=== PATIENT | male | born 1965 | race African-American/Black ===

== ENCOUNTER 2016-06-23 09:35 | Observation (INO) ==
[2016-06-23] MEDS ORDERED: ENOXAPARIN 100 MG/ML SYRINGE SUBCUT STA (09:53)
[2016-06-23] MEDS ORDERED: ASPIRIN 325 MG TABLET PO STA (09:53)
--- NOTE | 2016-06-23 09:56 | EKG Report ---
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
[2016-06-23 10:00] LABS: Basophils % 0.4 % (0.0-0.8); Eosinophils % 0.6 % (0.00-10.9); Hematocrit 46.5 VOL% (42.0-52.0); Hemoglobin 14.9 GM/DL (14.0-18.0); Lymphocytes # 1.3 10*3/uL (1.4-4.0); Lymphocytes % 27.1 % (21.2-54.2); Mean Corpuscular Hemoglobin 28 PG (27-34); Mean Corpuscular Volume 86.6 FL (87-102); Mean Platelet Volume 10.3 FL (9.6-12.0); Monocytes # 0.6 10*3/uL (0.11-0.8); Neutrophils # 2.8 10*3/uL (1.4-7.4); Neutrophils % 59.9 % (38.7-73.9); Platelet Count 189 T/CUMM (130-400); Red Blood Count 5.37 MC/CUMM (3.8-5.5); Red Cell Distribution Width 15.5 % (9.3-17.3); White Blood Count 4.7 T/CUMM (4-12)
[2016-06-23] MEDS ORDERED: ASPIRIN 325 MG TABLET ONE (10:06)
[2016-06-23] MEDS ORDERED: ENOXAPARIN 120 MG/0.8 ML SYRINGE SUBCUT ONE (10:06)
--- NOTE | 2016-06-23 10:15 | XRay Report ---
XR chest 1V portable Indication: Chest pain Comparison: 01 April 2016 Findings: The heart and mediastinum are stable in size and configuration. The pulmonary vascularity is slightly increased with bilateral increased interstitial lung density. No other lung infiltrates, effusions, pneumothorax or other abnormality is demonstrated. Impression: Findings suggest mild cardiac decompensation. PROCEDURE INTERPRETED AT [facility] DEPARTMENT OF RADIOLOGY Final Report Signed by: Dr. Domingo Meyers
[2016-06-23 10:40] LABS: Alanine Aminotransferase 47 U/L (16-61); Albumin 3.9 G/DL (3.4-5.0); Alkaline Phosphatase 82 U/L (45-117); Aspartate Amino Transferase 27 U/L (0-37); Bilirubin,Total < 0.39 MG/DL (0.2-1.0); Blood Urea Nitrogen 11 MG/DL (7-18); Calcium 10.2 MG/DL (8.5-10.1); Glucose 93 MG/DL (74-106); Magnesium 2.1 MG/DL (1.8-2.4); Osmolality,Calculated 279.3 MOS/KG (273-304); Potassium 4.5 MMOL/L (3.5-5.1); Sodium 141 MMOL/L (136-145); Total Protein 7.9 G/DL (6.4-8.3)
--- NOTE | 2016-06-23 11:46 | Emergency Department Note ---
Delores Gomez Hilary, am scribing for, and in the presence of, Abel Gann MD 10:27. Sanjuanita Gomez Phillip K, MD, personally performed the services described in this documentation, ascribed by Nadira Estrella in my presence, and it is both accurate and complete [id number] . Arrival - Arrival Chief Complaint: Chest Pain ED Nursing Triage Note: Brought in by EMS c/o midsternal chest pain-onset this morning. +SOB and generalized weakness x's 1 month. 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 Pt confirms SOB and generalized weakness for 1 month, midsternal chest pain that radiates to the right arm, dizzy, cough, swollen legs but denies having this feeling before, nausea, fever. 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 Pt has a PMHx of CHF, HTN, and Dyslipidemia. No other complaints or problems stated in the ED. Onset (ago): hour(s) Allergies/Adverse Reactions: Allergies Allergy/AdvReac Type Severity Reaction Status Date / Time No Known Allergies Allergy Verified 04/01/16 15:57 Home Medications: Home Medications Medication Instructions Recorded Confirmed Type Amlodipine Besylate 10 mg PO DAILY 06/23/16 06/23/16 History Aspirin EC Tab 81 mg PO DAILY 06/23/16 06/23/16 History Duloxetine HCl [Duloxetine] 30 mg PO BEDTIME 06/23/16 06/23/16 History Furosemide [Furosemide] 20 mg PO DAILY PRN 06/23/16 06/23/16 History Lisinopril 10 mg PO DAILY 06/23/16 06/23/16 History Nitroglycerin Sl Tab [Nitrostat] 0.4 mg SL Q5M PRN 06/23/16 06/23/16 History Pantoprazole Tab [Protonix Tab] 40 mg PO DAILY 06/23/16 06/23/16 History Review of System - Review of System 12 point system: reviewed and no additional remarkable complaints except as stated - Review of System Constitutional: Present: weakness (generalized), other (Dizzy). Absent: fever Respiratory: Present: cough, respiratory distress (SOB) Cardiovascular: Present: chest pain Gastrointestinal: Absent: abdominal pain, nausea, vomiting Musculoskeletal: Present: arm pain (chest pain radiating to rt arm), leg pain ( leg swelling) Neurological: Present: weakness (generalized) Medical,Surgical,& Family Hx - Medical History Cardio: History of: CHF, Hypertension Endocrine: History of: Dyslipidemia - Social History Smoking Status: Never smoker Frequency of Alcohol Use: Rarely Type of Drug Use: None Exam Vital Signs: Vital Signs Temperature 97.1 F L 06/23/16 09:41 Pulse Rate 79 06/23/16 10:00 Respiratory Rate 17 06/23/16 10:00 Blood Pressure 133/91 06/23/16 10:00 O2 Sat by Pulse Oximetry 98 06/23/16 10:00 - General General appearance: alert, in no apparent distress - Head Head exam: Present: atraumatic, normocephalic - Eye Eye exam: Present: normal appearance, PERRL, EOMI - ENT ENT exam: Present: mucous membranes moist, TM's normal bilaterally. Absent: mucous membranes dry - Neck Neck exam: Present: full ROM, trachea midline. Absent: tenderness - Chest Chest inspection: Present: symmetric chest wall rise. Absent: tenderness - Respiratory Respiratory exam: Present: normal lung sounds bilaterally. Absent: respiratory distress - Cardiovascular Cardiovascular exam: Present: regular rate, normal rhythm, normal heart sounds. Absent: murmur, rubs, gallop - Abdominal Exam Abdominal exam: Present: soft. Absent: distention, tenderness - Extremities Exam Extremities exam: Present: full ROM, pedal edema (2+ pedal edema bilaterally with the right leg being larger than the other. Chronic venustasis on Lower extremities). Absent: tenderness - Back Exam Back exam: Present: full ROM. Absent: tenderness - Neurological Exam Neurological exam: Present: alert, oriented X3, CN II-XII intact. Absent: motor sensory deficit - Psychiatric Psychiatric exam: Present: normal affect, normal mood - Skin Skin exam: Present: warm, dry, intact, normal color. Absent: rash Results - Labs CBC & BMP: 06/23/16 09:49 06/23/16 09:49 Lab Results: I have reviewed the patients labs Labs: Laboratory Tests 06/23/16 09:49 WBC 4.7 RBC 5.37 Hgb 14.9 Hct 46.5 MCV 86.6 L Lymph # (Auto) 1.3 L Laboratory Tests 06/23/16 09:49 Sodium 141 Potassium 4.5 Chloride 103 Carbon Dioxide 30 Calcium 10.2 H Globulin 4.0 H Albumin/Globulin Ratio 0.9 L - Diagnostic Findings Procedure: Chest x-ray: report reviewed by me (Findings suggest mild cardiac decompensation) Disposition Clinical Impression: Chest pain, Morbid obesity, History of congestive heart failure Case discussed with: patient Disposition: Still a Patient Condition: Guarded Additional Instructions: Admit to the hospitalist for further workup.
--- NOTE | 2016-06-23 12:43 | Ultrasound Report ---
US venous doppler LE BI Indication: Shortness of breath. Leg edema. BILATERAL LOWER EXTREMITY VENOUS ULTRASOUND Comparison: None Findings: Graded grayscale compression, color Doppler and pulsed Doppler ultrasound evaluation of the venous structures performed. Normal compressibility, augmentation and color saturation is present within bilateral common femoral, superficial femoral, popliteal and proximal greater saphenous veins. Impression: No evidence of DVT either lower extremity. PROCEDURE INTERPRETED AT [facility] DEPARTMENT OF RADIOLOGY Final Report Signed by: Jacoby Rudd M.D.
--- NOTE | 2016-06-23 13:02 | Hospitalist History & Physical ---
Assessment and Plan (1) Chest pain Status: Acute Assessment and plan: Patient will be admitted to the telemetry unit for further monitoring. Serial troponins will be drawn. Serial EKGs will be performed as well. Nitro prn as needed order for chest pain. Supplemental O2 available for patient. Chest x- ray unremarkable and venous Doppler showed no signs of DVT. Will consult cardiology pending further troponin results. Continue to monitor. Current Visit: Yes (2) History of congestive heart failure Status: Acute Assessment and plan: BNP 3. CXR unremarkable. VS stable. Current Visit: Yes (3) Morbid obesity Status: Acute Assessment and plan: Consult health and human performance professor. Place pt. on health and human performance professor. Current Visit: Yes History of Present Illness Chief complaint: Chest pain History of present illness: Mr. Villatoro is a 50-year-old morbidly obese black male patient with a history of CHF, NATALIA, PVD, hepatomegaly, hypertension, and dyslipidemia that presents to the ED this a.m. with complaints of midsternal chest pain. Patient states that he took one nitroglycerin prior to coming to the ED. Patient states that he has experienced chest pain with generalized weakness and shortness of breath for about 1 month but that it has progressively worsened within the last week Patient states that the midsternal chest pain is dull and that he feels as if something is" draining within my chest". Patient denies ever having this feeling before or any history of PR. Patient also states that he experienced dizziness this morning and has a cough. Patient denied history of whether or not the cough is nonproductive. Patient denies fever, nausea, or night sweats. Patient is seen by Dr. Durand. There are no other complaints or problems outlined in the ER at this time. The patient will be admitted to the hospitalist service for further evaluation and treatment. Home Medications Medication Instructions Recorded Confirmed Type Amlodipine Besylate 10 mg PO QAM 06/23/16 06/23/16 History Aspirin EC Tab 81 mg PO QAM 06/23/16 06/23/16 History Duloxetine HCl [Duloxetine] 30 mg PO BEDTIME 06/23/16 06/23/16 History Furosemide [Furosemide] 20 mg PO DAILY PRN 06/23/16 06/23/16 History Lisinopril 10 mg PO QAM 06/23/16 06/23/16 History Nitroglycerin Sl Tab [Nitrostat] 0.4 mg SL Q5M PRN 06/23/16 06/23/16 History Pantoprazole Tab [Protonix Tab] 40 mg PO QAM 06/23/16 06/23/16 History Allergies Allergy/AdvReac Type Severity Reaction Status Date / Time No Known Allergies Allergy Verified 04/01/16 15:57 Medical,Surgical,& Family Hx - Medical History Cardio: History of: CHF, Hypertension, PVD Endocrine: History of: Dyslipidemia Respiratory: History of: Obstructive Sleep Apnea (uses cpap) Gastrointestinal: History of: Liver Problems (pt. states he was recently diagnosed with an enlarged liver) - Social History Smoking Status: Never smoker Frequency of Alcohol Use: Rarely Type of Drug Use: None Lives With:: Parent Functional capacity: independent ambulation - Constitutional Constitutional: Present: stops breathing during sleep. Absent: chills, fever(s) , night sweats - EENT Eyes: Absent: blurry vision, loss of vision Ears: Absent: decreased hearing, ear discharge - Cardiovascular Cardiovascular: Present: chest pain at rest, edema - Respiratory Respiratory: Present: cough, dyspnea on exertion - Gastrointestinal Gastrointestinal: Absent: abdominal pain, nausea, vomiting - Genitourinary Genitourinary: Absent: difficulty urinating, hematuria - Musculoskeletal Musculoskeletal: Absent: muscle cramps - Neurological Neurological: Present: dizziness. Absent: confusion Exam - Constitutional General appearance: no acute distress, morbidly obese - Head Head exam: Present: normal inspection, normocephalic - Eye Eye exam: Present: EOMI. Absent: periorbital swelling Pupils: Present: CHRISTINA. Absent: dilated - Respiratory Respiratory exam: Present: other (coarse). Absent: accessory muscle use - Cardiovascular Cardiovascular exam: Present: regular rate and rhythm - GI/Abdominal GI/Abdominal exam: Present: normal bowel sounds, soft. Absent: tenderness - Extremities Exam Extremities exam: Present: normal capillary refill, full ROM - Neurological Exam Neurological exam: Present: alert, oriented X3, normal gait - Psychiatric Psychiatric exam: Present: normal affect, normal mood - Skin Skin exam: Present: normal color, warm, dry Results - Labs CBC & BMP: 06/23/16 09:49 06/23/16 09:49 Lab Results: I have reviewed the past 24 hour labs
[2016-06-23] MEDS ORDERED: NITROGLYCERIN SL 0.4 MG TABLET SL PRN (13:38)
[2016-06-23] MEDS ORDERED: ONDANSETRON 4 MG/2 ML VIAL IV PRN (13:38)
[2016-06-23] MEDS ORDERED: FUROSEMIDE 20 MG TABLET PO PRN (13:38)
[2016-06-23] MEDS ORDERED: ACETAMINOPHEN 325 MG TABLET PO PRN (13:38)
[2016-06-23 15:48] LABS: Troponin I Only < 0.015 NG/ML (0.00-0.045)
--- NOTE | 2016-06-23 16:35 | EKG Report ---
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
[2016-06-23 21:37] LABS: Troponin I Only < 0.015 NG/ML (0.00-0.045)
[2016-06-24 06:09] LABS: Basophils % 0.3 % (0.0-0.8); Eosinophils # 0.1 10*3/uL (0.0-0.87); Eosinophils % 1.3 % (0.00-10.9); Hematocrit 41.2 VOL% (42.0-52.0); Hemoglobin 13.1 GM/DL (14.0-18.0); Lymphocytes # 1.2 10*3/uL (1.4-4.0); Lymphocytes % 31.5 % (21.2-54.2); Mean Corpuscular HGB Conc 31.8 GM/DL (32-36); Mean Corpuscular Hemoglobin 28 PG (27-34); Mean Corpuscular Volume 88.2 FL (87-102); Mean Platelet Volume 11.1 FL (9.6-12.0); Monocytes # 0.6 10*3/uL (0.11-0.8); Monocytes % 15.4 % (1.7-12.7); Neutrophils % 51.5 % (38.7-73.9); Platelet Count 181 T/CUMM (130-400); Red Blood Count 4.67 MC/CUMM (3.8-5.5); Red Cell Distribution Width 15.5 % (9.3-17.3); White Blood Count 3.9 T/CUMM (4-12)
[2016-06-24 06:57] LABS: Free T4 (Free Thyroxine) 0.98 NG/DL (0.76-1.46); Risk Ratio 5.09; Thyroid Stimulating Hormone 3.25 uIU/ml (0.358-3.74); VLDL CHOLESTEROL 28.6 MG/DL
--- NOTE | 2016-06-24 07:54 | EKG Report ---
Stationary ECG Study 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
[2016-06-24] MEDS ORDERED: ENOXAPARIN 40 MG/0.4 ML SYRINGE SUBCUT SCH (09:00)
[2016-06-24] MEDS ORDERED: LISINOPRIL 10 MG TABLET PO SCH (09:00)
--- NOTE | 2016-06-24 09:12 | Cardiology Consult Note ---
<Laura Juares - Last Filed: 06/24/16 08:36> Assessment and Plan - Time spent with patient Time spent with patient: Greater than 30 minutes (1) Chest pain Status: Acute Assessment and plan: See plan of care listed below. Current Visit: Yes (2) History of congestive heart failure Status: Chronic Assessment and plan: See plan of care listed below. Current Visit: Yes (3) Hypertension Status: Chronic Assessment and plan: See plan of care listed below. Current Visit: Yes (4) Dyslipidemia Status: Chronic Assessment and plan: See plan of care listed below. Current Visit: Yes (5) Chronic venous insufficiency Status: Chronic Assessment and plan: See plan of care listed below. Current Visit: Yes (6) Morbid obesity Status: Chronic Assessment and plan: See plan of care listed below. 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 Drake ([facility]) PCP: Dr. Durand in [facility] Mr. Villatoro is a 50 year old male without known history of coronary artery disease, not routinely followed by cardiology. Patient presented to the emergency room yesterday with complaints of chest pain. Patient has cardiac risk factors significant for morbid obesity, hypertension, dyslipidemia, family history of coronary artery disease (mother had myocardial infarction in her 50s and his sister had coronary stents placed around age 61) and sedentary lifestyle. Per his report he is a lifetime non-smoker. Patient reports a past medical history of congestive heart failure (managed per Dr. Durand and Lucy), obstructive sleep apnea and chronic venous insufficiency. Patient reports that he has never undergone heart catheterization. Approximately 3 years ago he had a normal cardiac stress test at [facility] in [facility]. I have requested these records. Patient presented to [facility] emergency department via EMS with complaints of moderate midsternal chest pain that began yesterday morning while at rest. Patient is a poor historian. However, he describes his pain as a chest tightness that radiates to his right arm. He rates his pain a 5 out of 10. Associated with weakness, shortness of breath and heart racing. He confirms generalized weakness and easy fatigability with exercise intolerance over the past month. However, patient is morbidly obese weighing 339 pounds. Yesterday , he reports that his chest tightness lasted approximately 2 hours. It was finally relieved after receiving nitroglycerin in the emergency department. He tells me that yesterday his chest discomfort was not worsened with exertion. He was unable to identify any specific alleviating or aggravating factors. However, after further discussing with the patient he does confirm that he has been experiencing mild chest tightness with walking over the past several months. He reports that it only lasts a short time and is relieved with rest. Yesterday, his chest pain lasted longer than usual. At that time, he felt that he would benefit from being evaluated further in the emergency department. Patient has been admitted under hospitalist's service and housed on the telemetry unit. Cardiology has been consulted to further evaluate patient's chest pain. Patient was seen and examined on the telemetry unit. He is currently resting in bed in no acute distress without complaints of chest pain, heaviness and tightness. Cardiac biomarkers have been negative this hospital admission. EKG is unremarkable. Echocardiogram has been ordered, results are pending. Chronic venous stasis changes noted to bilateral lower extremities with significant edema. Venous Dopplers of bilateral lower extremities negative for DVT. BNP of 3. He does not appear to be in acute congestive heart failure. His chest x-ray suggestive of vascular congestion without briana pulmonary edema. Will continue to monitor cardiac biomarkers and keep patient NPO. Assessment/plan: 1. CHEST PAIN - Cardiac biomarkers have been negative this hospital admission. EKG is unremarkable. Currently, without chest pain, heaviness and tightness. Patient reports a history of congestive heart failure. However, he has never undergone cardiac catheterization in order to definitively diagnose ischemic versus nonischemic cardiomyopathy. Patient's CHF is managed per Dr. Durand in [facility], I have requested records from her office to verify this diagnosis. I have also requested records from [facility] in [place] patient reports that he has had cardiac stress testing there in the past. Echocardiogram has been obtained in order to evaluate patient's cardiomyopathy, this will be reviewed. At this point, will continue to cycle cardiac biomarkers and keep patient n.p.o. Will further discuss with Dr. Drake regarding the need for cardiac catheterization versus noninvasive testing. 2. HISTORY OF CONGESTIVE HEART FAILURE -This appears to be clinically stable at present. BNP of 3. He does not appear to be in acute congestive heart failure. His chest x-ray suggestive of vascular congestion without briana pulmonary edema. Echocardiogram has been obtained, results pending. Continue current plan of care at this time. Will further adjust his medications as needed throughout his hospital stay. 3. DYSLIPIDEMIA -lipid panel has been reviewed. Low-dose statin has been added at this time. Will monitor patient's LFTs as patient reports a history of enlarged liver. 4. HYPERTENSION -I have increased his lisinopril to 20 mg daily as patient's blood pressure has been suboptimally controlled this admission. Will make further adjustments as needed throughout his hospital stay. 5. CHRONIC VENOUS INSUFFICIENCY - Chronic venous stasis changes noted to bilateral lower extremities with significant edema. Venous Dopplers of bilateral lower extremities negative for DVT. BNP of 3. 6. OBSTRUCTIVE SLEEP APNEA -encouraged patient to bring his CPAP machine from home. CPAP nightly. 7. MORBID OBESITY -dietitian has been consulted per hospital medicine. Counseled patient on the importance of weight loss. Further plan and addendum to follow per Dr. Drake. CC: Tin Velazquez MD - Home Medications and Allergies Home Medications: Home Medications Medication Instructions Recorded Confirmed Type Amlodipine Besylate 10 mg PO QAM 06/23/16 06/23/16 History Aspirin EC Tab 81 mg PO QAM 06/23/16 06/23/16 History Duloxetine HCl [Duloxetine] 30 mg PO BEDTIME 06/23/16 06/23/16 History Furosemide [Furosemide] 20 mg PO DAILY PRN 06/23/16 06/23/16 History Lisinopril 10 mg PO QAM 06/23/16 06/23/16 History Nitroglycerin Sl Tab [Nitrostat] 0.4 mg SL Q5M PRN 06/23/16 06/23/16 History Pantoprazole Tab [Protonix Tab] 40 mg PO QAM 06/23/16 06/23/16 History Allergies/Adverse Reactions: Allergies Allergy/AdvReac Type Severity Reaction Status Date / Time No Known Allergies Allergy Verified 04/01/16 15:57 - Constitutional Constitutional: Present: fatigue, weakness. Absent: excessive sweating, fever(s ), frequent falls, headache(s), night sweats - Cardiovascular Cardiovascular: Present: as per HPI, chest pain at rest, dyspnea, dyspnea on exertion, edema, radiating jaw, neck or arm pain, lightheadedness, palpitations. Absent: claudication, diaphoresis, orthopnea, PND - Respiratory Respiratory: Present: cough, dyspnea, dyspnea on exertion. Absent: hemoptysis, wheezing, pain on inspiration, change in phlegm color - Gastrointestinal Gastrointestinal: Present: heartburn. Absent: abdominal pain, change in bowel habits, coffee ground emesis, hematemesis, hematochezia, loose stools, melena, nausea, vomiting - Neurological Neurological: Present: abnormal speech, dizziness. Absent: abnormal gait, behavioral changes, confusion, frequent falls, headache(s), syncope - Hematologic/Lymphatic Hematologic/Lymphatic: Absent: easy bleeding, easy bruising, lymphadenopathy Medical,Surgical,& Family Hx - Medical History Cardio: History of: CHF, Hypertension, Cardiovascular Problems (Chronic venous insufficiency) HEENT: History of: Ear Problem (cataracts) Endocrine: History of: Dyslipidemia Respiratory: History of: Obstructive Sleep Apnea (uses cpap) Gastrointestinal: History of: Liver Problems (pt. states he was recently diagnosed with an enlarged liver) Musculoskeletal: History of: Musculoskeletal Problems (arthritis in knee) Other: History of: Miscellaneous Medical Problems (Morbidly obese) - Surgical History Cardiac Surgeries: Patient Denies: Cardiac Catheterization - Family History Family History: Reports;: Family Heart Disease - Social History Smoking Status: Never smoker Frequency of Alcohol Use: Rarely Type of Drug Use: None Physical Examination Vital Signs Temp Pulse Resp BP Pulse Ox 97.1 F L 91 H 22 172/86 100 06/23/16 09:41 06/23/16 09:41 06/23/16 09:41 06/23/16 09:41 06/23/16 09:41 General: Present: No Apparent Distress, Other (Morbidly obese) HEENT: Present: Normocephaly Neck: Present: No Bruit, No Lymphadenopathy, No Thyromegaly Cardiac: Present: Reg Rate and Rhythm, S1/S2, No Murmur Lungs: Present: Normal Exam, Clear Ascult./Percussion, Normal Breath Sounds, No Wheeze, Rales, Rhonchi Abdomen: Present: Soft, Active Bowel Sounds, Non-Tender Skin: Present: Other (Chronic stasis changes noted to bilateral lower extremities) Extremities: Present: No Clubbing, No Cyanosis, Normal Upper Extr. Pulses, Normal Lower Extr. Pulses, +3 Edema (Bilateral lower extremities) Result/EKG - Labs CBC & BMP: 06/24/16 04:21 06/23/16 09:49 Lab Results: I have reviewed the past 24 hour labs Labs: Laboratory Results - last 24 hr 06/23/16 06/23/16 06/23/16 13:34 14:36 14:36 WBC RBC Hgb Hct MCV MCH MCHC RDW Plt Count MPV Neut % (Auto) Lymph % (Auto) [place] % (Auto) Eos % (Auto) Baso % (Auto) Neut # (Auto) Lymph # (Auto) [place] # (Auto) Eos # (Auto) Baso # (Auto) Immature Gran % Nucleated RBC % Immature Gran # Nucleated RBCs # INR 1.0 PT Patient/Control Mix 11.0 Hemoglobin A1c Total Creatine Kinase 42 CK-MB (CK-2) < 1.0 Troponin I < 0.015 < 0.015 Triglycerides Cholesterol LDL Cholesterol VLDL Cholesterol HDL Cholesterol Heart Disease Risk Ratio Free T4 TSH 3rd Generation 06/23/16 06/23/16 06/24/16 15:59 21:01 04:21 WBC 3.9 L RBC 4.67 Hgb 13.1 L Hct 41.2 L MCV 88.2 MCH 28 MCHC 31.8 L RDW 15.5 Plt Count 181 MPV 11.1 Neut % (Auto) 51.5 Lymph % (Auto) 31.5 [place] % (Auto) 15.4 H Eos % (Auto) 1.3 Baso % (Auto) 0.3 Neut # (Auto) 2.0 Lymph # (Auto) 1.2 L [place] # (Auto) 0.6 Eos # (Auto) 0.1 Baso # (Auto) 0.0 Immature Gran % 0.0 Nucleated RBC % 0.0 Immature Gran # 0.00 Nucleated RBCs # 0.00 INR PT Patient/Control Mix Hemoglobin A1c Total Creatine Kinase 39 CK-MB (CK-2) < 1.0 Troponin I < 0.015 < 0.015 Triglycerides Cholesterol LDL Cholesterol VLDL Cholesterol HDL Cholesterol Heart Disease Risk Ratio Free T4 TSH 3rd Generation 06/24/16 06/24/16 04:21 04:21 WBC RBC Hgb Hct MCV MCH MCHC RDW Plt Count MPV Neut % (Auto) Lymph % (Auto) [place] % (Auto) Eos % (Auto) Baso % (Auto) Neut # (Auto) Lymph # (Auto) [place] # (Auto) Eos # (Auto) Baso # (Auto) Immature Gran % Nucleated RBC % Immature Gran # Nucleated RBCs # INR PT Patient/Control Mix Hemoglobin A1c 5.9 Total Creatine Kinase CK-MB (CK-2) Troponin I Triglycerides 143 Cholesterol 219 H LDL Cholesterol 148.0 VLDL Cholesterol 28.6 HDL Cholesterol 43 Heart Disease Risk Ratio 5.09 Free T4 0.98 TSH 3rd Generation 3.250 <Jacoby Drake - Last Filed: 06/24/16 11:49> History of Present Illness - Consult Narrative History of present illness: Patient personally interviewed and examined and chart reviewed. Discussed case with Laura Juares NP. I agree with the assessment and evaluation and plan. In summation in addition Mr. Villatoro is a 50 year old male is actually fairly poor historian. He has had chronic recurrent episodes of chest pain by his history. For the past year he's had this persistent wax waning and sometimes can clinically resolving chest pain. He presented to the emergency room with chest pain that lasted for entire day without any real shortness of breath nausea or diaphoresis. Evaluation here with troponin nondetectable 4, BNP of 3. His ECG with normal sinus rhythm and within normal limits. Having chest pain lasting for entire day if this was ischemic on his suspect at least some detectable troponin or changes ECG none of which she has. He is very tenderness chest wall and reproduces of his pain with palpation. He is morbidly obese and has sleep apnea. I think his weight though is low enough that we can do a cardiac perfusion study and I would recommend this over catheterization in this patient. I discussed this with him and he is agreeable. His biggest concern at this time in our discussion was getting something to eat. If his car perfusion study is normal as is his echocardiogram we will discharge the patient later today possibly. CC: Tin Velazquez MD Physical Examination Vital Signs Temp Pulse Resp BP Pulse Ox 97.1 F L 91 H 22 172/86 100 06/23/16 09:41 06/23/16 09:41 06/23/16 09:41 06/23/16 09:41 06/23/16 09:41 General: Present: Other Result/EKG - Labs CBC & BMP: 06/24/16 04:21 06/23/16 09:49 Labs: Laboratory Results - last 24 hr 06/23/16 06/23/16 06/23/16 13:34 14:36 14:36 WBC RBC Hgb Hct MCV MCH MCHC RDW Plt Count MPV Neut % (Auto) Lymph % (Auto) [place] % (Auto) Eos % (Auto) Baso % (Auto) Neut # (Auto) Lymph # (Auto) [place] # (Auto) Eos # (Auto) Baso # (Auto) Immature Gran % Nucleated RBC % Immature Gran # Nucleated RBCs # INR 1.0 PT Patient/Control Mix 11.0 Hemoglobin A1c Total Creatine Kinase 42 CK-MB (CK-2) < 1.0 Troponin I < 0.015 < 0.015 Triglycerides Cholesterol LDL Cholesterol VLDL Cholesterol HDL Cholesterol Heart Disease Risk Ratio Free T4 TSH 3rd Generation 06/23/16 06/23/16 06/24/16 15:59 21:01 04:21 WBC 3.9 L RBC 4.67 Hgb 13.1 L Hct 41.2 L MCV 88.2 MCH 28 MCHC 31.8 L RDW 15.5 Plt Count 181 MPV 11.1 Neut % (Auto) 51.5 Lymph % (Auto) 31.5 [place] % (Auto) 15.4 H Eos % (Auto) 1.3 Baso % (Auto) 0.3 Neut # (Auto) 2.0 Lymph # (Auto) 1.2 L [place] # (Auto) 0.6 Eos # (Auto) 0.1 Baso # (Auto) 0.0 Immature Gran % 0.0 Nucleated RBC % 0.0 Immature Gran # 0.00 Nucleated RBCs # 0.00 INR PT Patient/Control Mix Hemoglobin A1c Total Creatine Kinase 39 CK-MB (CK-2) < 1.0 Troponin I < 0.015 < 0.015 Triglycerides Cholesterol LDL Cholesterol VLDL Cholesterol HDL Cholesterol Heart Disease Risk Ratio Free T4 TSH 3rd Generation 06/24/16 06/24/16 06/24/16 04:21 04:21 10:03 WBC RBC Hgb Hct MCV MCH MCHC RDW Plt Count MPV Neut % (Auto) Lymph % (Auto) [place] % (Auto) Eos % (Auto) Baso % (Auto) Neut # (Auto) Lymph # (Auto) [place] # (Auto) Eos # (Auto) Baso # (Auto) Immature Gran % Nucleated RBC % Immature Gran # Nucleated RBCs # INR PT Patient/Control Mix Hemoglobin A1c 5.9 Total Creatine Kinase 42 CK-MB (CK-2) < 1.0 Troponin I < 0.015 Triglycerides 143 Cholesterol 219 H LDL Cholesterol 148.0 VLDL Cholesterol 28.6 HDL Cholesterol 43 Heart Disease Risk Ratio 5.09 Free T4 0.98 TSH 3rd Generation 3.250
[2016-06-24 10:48] LABS: Troponin I Only < 0.015 NG/ML (0.00-0.045)
[2016-06-24] MEDS ORDERED: REGADENOSON 0.4 MG/5 ML SYRINGE IV ONE (15:23)
[2016-06-24 16:35] LABS: Troponin I Only < 0.015 NG/ML (0.00-0.045)
--- NOTE | 2016-06-24 16:42 | Hospitalist Progress Note ---
Assessment and Plan - Time spent with patient Time spent with patient: Less than 30 minutes (1) Chest pain Status: Acute Assessment and plan: Follow-up nuclear stress test. Current Visit: Yes (2) Morbid obesity Status: Chronic Current Visit: Yes Qualifiers: Obesity type: due to excess calories Qualified Code(s): E66.01 - Morbid ( severe) obesity due to excess calories (3) Hypertension Status: Chronic Current Visit: Yes Qualifiers: Hypertension type: essential hypertension Qualified Code(s): I10 - Essential (primary) hypertension (4) Dyslipidemia Status: Chronic Current Visit: Yes (5) Chronic venous insufficiency Status: Chronic Current Visit: Yes (6) Obstructive sleep apnea Status: Acute Current Visit: Yes Hospitalist: Subjective Interval history: 50-year-old male admitted with chest pain. Cardiology consult noted. Nuclear stress test pending. Exam - Constitutional Vitals: Period Temp Pulse Resp BP Sys/Vickers Pulse Ox Last 24 Hr 96.4 F-97.8 F 70-82 12-22 146-177/81-97 97-100 Exam: Constitutional System: No distress. No tremulousness. Head: Normocephalic, atraumatic. Ears, Nose and Throat System: No pain or tenderness. No epistaxis or discharge Eyes System: Pupils equal, round, and reactive. Extraocular muscles intact. Neck: Supple, without adenopathy, No jugular venous distention. Respiratory System: Chest clear to auscultation. Cardiovascular System: Heart with regular rate and rhythm. No murmur. GI System: Abdomen soft, nontender. Normo active bowel sounds present. Musculoskeletal System: limbs with no pedal edema. Full distal pulses. Chronic lower extremity stasis changes. Neurological System: No discernable sensory deficit. No aphasia Psychiatric System: Conversation is rational Results - Labs CBC & BMP: 06/24/16 04:21 06/23/16 09:49 Lab Results: I have reviewed the past 24 hour labs
[2016-06-24] MEDS: LISINOPRIL 20 MG TABLET PO SCH (17:02)
[2016-06-24] MEDS: ASPIRIN EC 81 MG TABLET PO SCH (17:03)
[2016-06-24] MEDS: PANTOPRAZOLE 40 MG TABLET PO SCH (17:03)
[2016-06-24] MEDS: amLODIPine 10 MG TABLET PO SCH (17:03)
--- NOTE | 2016-06-24 18:15 | ECHO Report ---
Tommy Villatoro Exam Date: 06/24/2016 14:05 Referring Physician: Technologist: Jennifer Piña RDCS Age: 50 Ht (in): 61 Wt (lb): 339 Gender: M Exam Location: [facility] Echo Indications: Chest pain, unspecified, Essential (primary) hypertension, Weakness, Chronic fatigue, unspecified, Morbid (severe) obesity due to excess calories, NATALIA, Dyslipidemia, Peripheral vascular disease, unspecified BP: 160 / 81 HR: 80 Rhythm: Sinus Technical Quality: Fair IMPRESSIONS Left ventricle is normal size and normal systolic function without segmental mellitus. Ejection fraction 55%. 2. Other cardiac chambers are normal size and function. 3. The valvular structures are all grossly normal anatomically and functionally. 4. This is an unremarkable echocardiogram. MEASUREMENTS (Male / Female) Normal Values 2D ECHO LV Diastolic Diameter PLAX 5.8 cm 4.2 - 5.9 / 3.9 - 5.3 cm LV Systolic Diameter PLAX 3.1 cm LV Fractional Shortening PLAX 47.5 % IVS Diastolic Thickness 0.9 cm 0.6 - 1.0 / 0.6 - 0.9 cm LVPW Diastolic Thickness 0.9 cm 0.6 - 1.0 / 0.6 - 0.9 cm RV Internal Dim ED PLAX 2.8 cm Aortic Root Diameter 3.3 cm LA Systolic Diameter LX 4.1 cm 3.0 - 4.0 / 2.7 - 3.8 cm FINDINGS Left Ventricle Normal left ventricular cavity size. Normal left ventricular wall thickness. Left ventricular ejection fraction is estimated at 55 %. Right Ventricle The right ventricle is normal in size and function. Right Atrium The right atrium is normal in size. Left Atrium The left atrium is normal in size. Mitral Valve Morphologically normal mitral valve without significant stenosis or prolapse. There is no mitral regurgitation. Aortic Valve Morphologically normal aortic valve without significant sclerosis or stenosis. There is no aortic regurgitation. Tricuspid Valve Morphologically normal tricuspid valve without significant stenosis or regurgitation. Pulmonary artery systolic pressure is normal. Pulmonic Valve Morphologically normal pulmonic valve without significant stenosis. There is no pulmonic regurgitation. Pericardium Normal pericardium without effusion. Aorta Normal ascending aorta dimension. Jacoby Drake MD (Electronically Signed) Final Date: 24 Jun 2016 18:14
[2016-06-24] MEDS ORDERED: ROSUVASTATIN 10 MG TABLET PO SCH (21:00)
--- NOTE | 2016-06-24 22:41 | Nuclear Medicine Report ---
MYOCARDIAL PERFUSION SCAN DATE: 06/24/2016 BRIEF CLINICAL SUMMARY: The patient is a 50-year-old uncertain history of present illness. The patient was injected with 10 mCi of Sestamibi and was later sent for resting images to be obtain ed. The patient was then placed on a Lexiscan protocol due to gait instability. He had no ST montalvo es, dysrhythmia, or abnormality during the study. After Lexiscan, he was given 30 mCi of Sestamibi and was later sent for stress images to be obtained. The 3-D orthogonal reconstruction view shows a small fixed apical defect of moderate severity in the horizontal and vertical axis. Perfusion of the anterior lateral dimas appeared to be normal. Perf usion of the inferior wall is probably normal with some moderate amount of extracardiac radiotracer uptake adjacent and contiguous with the inferior wall in the rest and stress images in the short and vertical axis. The gated stress images shows normal LV systolic function with the ejection fraction estimated to be 60%. Wall motion is normal by regional wall motion analysis with mildly elevated end-diastolic volume. The raw data in cine mode shows no patient motion of the study with moderate subdiaphragmatic artifa ct from extracardiac uptake of radiotracer. IMPRESSION: 1. SCINTIGRAPHICALLY NORMAL MYOCARDIAL PERFUSION WITH THE EXCEPTION OF A MODEST FIXED APICAL DEFECT OF MODERATE SEVERITY MORE LIKELY RELATED TO GI ARTIFACT THAN TO SCARRING. 2. NORMAL LV SYSTOLIC FUNCTION WITH EJECTION FRACTION ESTIMATED TO BE 60% 3. NORMAL WALL MOTION BY REGIONAL WALL MOTION ANALYSIS WITH MILDLY ELEVATED END-DIASTOLIC VOLUME. DISPOSITION: This study is a low-risk study with normal LV function and no ischemia. As noted abov e the apical defect is more likely related to GI artifact, but some degree of scarring here cannot b e ruled out. Clinical correlation is suggested. Procedure performed and interpreted at [facility] Department of Radiology.
[2016-06-25 05:03] LABS: Basophils % 0.5 % (0.0-0.8); Hematocrit 41.4 VOL% (42.0-52.0); Immature Granulocytes % 0.2 %; Immature Granulocytes Absolute 0.01 #; Lymphocytes # 1.2 10*3/uL (1.4-4.0); Lymphocytes % 29.4 % (21.2-54.2); Mean Corpuscular HGB Conc 31.4 GM/DL (32-36); Mean Corpuscular Hemoglobin 28 PG (27-34); Mean Corpuscular Volume 87.9 FL (87-102); Mean Platelet Volume 10.8 FL (9.6-12.0); Monocytes # 0.7 10*3/uL (0.11-0.8); Neutrophils # 2.2 10*3/uL (1.4-7.4); Neutrophils % 51.9 % (38.7-73.9); Platelet Count 177 T/CUMM (130-400); Red Blood Count 4.71 MC/CUMM (3.8-5.5); Red Cell Distribution Width 15.3 % (9.3-17.3); White Blood Count 4.2 T/CUMM (4-12)
[2016-06-25 05:32] LABS: Eosinophils 2 % (0-10); Lymphocytes 27 % (20-55); Metamyelocytes 1 %; Segmented Neutrophils 54 % (50-85); Total Cells Counted 100
[2016-06-25 05:33] LABS: Hypochromasia 1+; Microcytosis Slight; Stomatocytes Slight
[2016-06-25 05:34] LABS: Platelet Estimate Adequate
[2016-06-25 05:46] LABS: Alanine Aminotransferase 42 U/L (16-61); Albumin 3.6 G/DL (3.4-5.0); Alkaline Phosphatase 73 U/L (45-117); Aspartate Amino Transferase 21 U/L (0-37); Bilirubin,Direct < 0.10 MG/DL (0.0-0.20); Bilirubin,Indirect 0.5 MG/DL (0.0-1.0); Blood Urea Nitrogen 11 MG/DL (7-18); Calcium 9.6 MG/DL (8.5-10.1); Glucose 98 MG/DL (74-106); Magnesium 2.3 MG/DL (1.8-2.4); Osmolality,Calculated 277.4 MOS/KG (273-304); Potassium 4.4 MMOL/L (3.5-5.1); Sodium 140 MMOL/L (136-145); Total Protein 7.1 G/DL (6.4-8.3)
--- NOTE | 2016-06-25 08:38 | Cardiology Progress Note ---
Assessment and Plan (1) Chest pain Status: Chronic Assessment and plan: This is somewhat chronic and noncardiac. No further cardiac evaluation needed this time. Current Visit: Yes (2) Morbid obesity Status: Chronic Assessment and plan: This certainly contributes to his multiple medical issues in leads to lose weight. Current Visit: Yes Qualifiers: Obesity type: due to excess calories Qualified Code(s): E66.01 - Morbid ( severe) obesity due to excess calories (3) Hypertension Status: Chronic Assessment and plan: This is fairly stable and be followed by his primary care physician. Current Visit: Yes Qualifiers: Hypertension type: essential hypertension Qualified Code(s): I10 - Essential (primary) hypertension (4) Dyslipidemia Status: Chronic Assessment and plan: He is now on Crestor and I would continue this and levels to be followed by his PCP. Current Visit: Yes (5) Obstructive sleep apnea Status: Acute Assessment and plan: He needs to continue treatment follow-up for this. Weight loss would probably benefit this tremendously. Current Visit: Yes (6) Edema Status: Chronic Assessment and plan: Much of this is lower extremity edema probably from some venous stasis disease. Much of this is probably associated with his morbid obesity and venous stasis. He is not very mobile so his feet are dependent almost all the time except for when he is in bed. Weight loss would be of great benefit. This to can be followed by his PCP. Current Visit: Yes Cardiology - PN: Subj Interval history: Patient doing well today. His chest pain is much improved. He is having no shortness of breath. His telemetry has been unremarkable. His cardiac perfusion study was normal without evidence of inducible ischemia. His echocardiogram was normal and normal ejection fraction without any structural or functional abnormalities noted. His ECGs have been normal. His troponin has been nondetectable. His lipids are certainly elevated and he should continue on his Crestor. This can be followed up by his primary care physician. Based on all the evaluation findings and clinical findings this patient's chest pain does not appear to be cardiac in nature. I do not think any further cardiac evaluation is indicated at this time. My standpoint he can be discharged. We will sign off at this time. Please let us know if we can be of any further service. Exam (Progress Note) - Constitutional Vitals: Period Temp Pulse Resp BP Sys/Vickers Pulse Ox Last 24 Hr 96.4 F-98.1 F 68-90 12-22 135-177/70-110 93-100 Exam: General appearance: Morbidly obese, no acute distress HEENT exam: normal inspection, atraumatic Neck exam: No carotid bruit. Trachea is in midline Respiratory/lungs exam: clear to auscultation bilaterally good air movement. Cardiovascular exam: regular rate and rhythm, no murmur or gallop or rub. No precordial lift. Chest wall exam: nontender GI/Abdominal exam: Morbidly obese, soft, nontender. Extremeties/musculoskeletal: Edema Neurological exam: alert, oriented X3, no focal deficits Psychiatric exam: normal affect, normal mood. Cognitive function is grossly normal. Skin exam: normal color, warm Result/EKG - Labs CBC & BMP: 06/25/16 04:12 06/25/16 04:12 Lab Results: I have reviewed the past 24 hour labs Labs: Laboratory Results - last 24 hr 06/24/16 06/24/16 06/25/16 10:03 15:34 04:12 WBC 4.2 RBC 4.71 Hgb 13.0 L Hct 41.4 L MCV 87.9 MCH 28 MCHC 31.4 L RDW 15.3 Plt Count 177 MPV 10.8 Neut % (Auto) 51.9 Lymph % (Auto) 29.4 [place] % (Auto) 17.0 H Eos % (Auto) 1.0 Baso % (Auto) 0.5 Neut # (Auto) 2.2 Lymph # (Auto) 1.2 L [place] # (Auto) 0.7 Eos # (Auto) 0.0 Baso # (Auto) 0.0 Total Counted 100 Immature Gran % 0.2 Nucleated RBC % 0.0 Immature Gran # 0.01 Segmented Neutrophils 54 Lymphocytes 27 Monocytes 14 Eosinophils 2 Basophils 2.0 H Metamyelocytes 1 Nucleated RBCs # 0.00 Platelet Estimate Adequate Hypochromasia 1+ Microcytosis Slight Stomatocytes Slight Morphology Comment Sodium Potassium Chloride Carbon Dioxide Anion Gap BUN Creatinine GFR Calculation BUN/Creatinine Ratio Glucose Calculated Osmolality Calcium Magnesium Total Bilirubin Direct Bilirubin Indirect Bilirubin AST ALT Alkaline Phosphatase Total Creatine Kinase 42 49 CK-MB (CK-2) < 1.0 < 1.0 Troponin I < 0.015 < 0.015 Total Protein Albumin 06/25/16 04:12 WBC RBC Hgb Hct MCV MCH MCHC RDW Plt Count MPV Neut % (Auto) Lymph % (Auto) [place] % (Auto) Eos % (Auto) Baso % (Auto) Neut # (Auto) Lymph # (Auto) [place] # (Auto) Eos # (Auto) Baso # (Auto) Total Counted Immature Gran % Nucleated RBC % Immature Gran # Segmented Neutrophils Lymphocytes Monocytes Eosinophils Basophils Metamyelocytes Nucleated RBCs # Platelet Estimate Hypochromasia Microcytosis Stomatocytes Morphology Comment Sodium 140 Potassium 4.4 Chloride 103 Carbon Dioxide 31 Anion Gap 10.4 BUN 11 Creatinine 0.80 GFR Calculation 164 BUN/Creatinine Ratio 13.00 Glucose 98 Calculated Osmolality 277.4 Calcium 9.6 Magnesium 2.3 Total Bilirubin 0.60 Direct Bilirubin < 0.10 Indirect Bilirubin 0.5 AST 21 ALT 42 Alkaline Phosphatase 73 Total Creatine Kinase CK-MB (CK-2) Troponin I Total Protein 7.1 Albumin 3.6 - Impressions Impressions: Telemetry with normal sinus rhythm.
[2016-06-25] MEDS: PANTOPRAZOLE 40 MG TABLET PO SCH (09:54)
[2016-06-25] MEDS: ASPIRIN EC 81 MG TABLET PO SCH (09:54)
[2016-06-25] MEDS: LISINOPRIL 20 MG TABLET PO SCH (09:55)
[2016-06-25] MEDS: amLODIPine 10 MG TABLET PO SCH (09:55)
--- NOTE | 2016-06-25 09:59 | Discharge Summary ---
Hospital Course - Hospital Course Hospital Course: Mr. Lowe is a 50-year-old obese -[place]wegian male with history of congestive heart failure, obstructive sleep apnea, peripheral vascular disease, hepatomegaly, hypertension, dyslipidemia presenting to the ED on 06/23/2016 with complaints of substernal chest pain and generalized weakness with shortness of breath that has progressively worsened over the last week. Patient's EKGs were okay and serial troponins were negative. Patient had a negative stress test per Dr. Drake from cardiology. Patient was started on some Crestor for his dyslipidemia and his levels will need to be followed by his primary care physician. Diabetes educators were consulted and weight loss was recommended for this patient. Patient also has dependent edema to bilateral lower extremities due to venous insufficiency. He does complain of bilateral leg pain. Will not write narcotics for this because that is not the treatment for venous insufficiency. He will need to follow-up with primary care physician and be fitted for compression stockings which should help with his venous return and pain. Patient is doing well. He has had no complaints of chest pain or shortness of breath, and is tolerating a diet. He will be discharged home with a 4 to six-week follow-up with Dr. Drake and a 2 week follow-up with his primary care physician nurse darnell das Lucy. Care was coordinated with Roxana Medina, CROP DUSTER ACNP, Dr. Santos, patient, and nursing staff. Care coordination, chart review, and discharge paperwork took approximately 34 minutes. - Time spent with patient Time with patient DS: Greater than 30 minutes Diagnosis - Discharge Diagnosis (1) Chest pain Status: Chronic (2) Morbid obesity Status: Chronic (3) History of congestive heart failure Status: Chronic (4) Hypertension Status: Chronic (5) Dyslipidemia Status: Chronic (6) Chronic venous insufficiency Status: Chronic (7) Obstructive sleep apnea Status: Acute Discharge Plan - Discharge Data Disposition: Disch To Home/Self Care Condition at Discharge: Stable Discharge Diet: diabetic diet Activity: resume usual activities as tolerated, no prolonged standing Hygiene: may shower Driving: no restrictions Contact your physician if you experience:: fever over 101, Redness or swelling, Shortness of breath, pain uncontrolled by pain medications - Discharge Medications New Rosuvastatin [Crestor] 10 mg PO BEDTIME #60 tablet Continue Nitroglycerin Sl Tab [Nitrostat] 0.4 mg SL Q5M PRN PRN Reason: Chest Pain Lisinopril 10 mg PO QAM Furosemide 20 mg PO DAILY PRN PRN Reason: Edema Duloxetine HCl [Duloxetine] 30 mg PO BEDTIME Amlodipine Besylate 10 mg PO QAM Aspirin EC Tab 81 mg PO QAM Pantoprazole Tab [Protonix Tab] 40 mg PO QAM - Follow Up or Referral Follow Up: Jacoby Drake MD [Physician] - 1 Month JUAN Durand [Other] - 1 Week (Follow-up for compression stockings for venous insufficiency) - Forms/Instructions Exam - Constitutional Vitals: Period Temp Pulse Resp BP Sys/Vickers Pulse Ox Last 24 Hr 96.4 F-98.1 F 68-90 12-22 135-177/70-110 93-100 Exam: 50-year-old -[place]wegian male, no acute distress, alert and oriented Chest clear CV regular rate and rhythm Abdomen obese, nontender Extremities with chronic edema Discharge Results Procedures and tests throughout hospitalization: Pending Orders 06/26/16 04:00 BMP w/ Mg [Basic Metabolic Panel w/Mg] IN AM CBC [Comp Blood Count Auto Diff] IN AM 06/27/16 04:00 BMP w/ Mg [Basic Metabolic Panel w/Mg] IN AM CBC [Comp Blood Count Auto Diff] IN AM 06/28/16 04:00 BMP w/ Mg [Basic Metabolic Panel w/Mg] IN AM CBC [Comp Blood Count Auto Diff] IN AM Labs on day of discharge: Labs from last 24 hours 06/25/16 06/25/16 06/24/16 04:12 04:12 15:34 WBC 4.2 RBC 4.71 Hgb 13.0 L Hct 41.4 L MCV 87.9 MCH 28 MCHC 31.4 L RDW 15.3 Plt Count 177 MPV 10.8 Neut % (Auto) 51.9 Lymph % (Auto) 29.4 [place] % (Auto) 17.0 H Eos % (Auto) 1.0 Baso % (Auto) 0.5 Neut # (Auto) 2.2 Lymph # (Auto) 1.2 L [place] # (Auto) 0.7 Eos # (Auto) 0.0 Baso # (Auto) 0.0 Total Counted 100 Immature Gran % 0.2 Nucleated RBC % 0.0 Immature Gran # 0.01 Segmented Neutrophils 54 Lymphocytes 27 Monocytes 14 Eosinophils 2 Basophils 2.0 H Metamyelocytes 1 Nucleated RBCs # 0.00 Platelet Estimate Adequate Hypochromasia 1+ Microcytosis Slight Stomatocytes Slight Morphology Comment Sodium 140 Potassium 4.4 Chloride 103 Carbon Dioxide 31 Anion Gap 10.4 BUN 11 Creatinine 0.80 GFR Calculation 164 BUN/Creatinine Ratio 13.00 Glucose 98 Calculated Osmolality 277.4 Calcium 9.6 Magnesium 2.3 Total Bilirubin 0.60 Direct Bilirubin < 0.10 Indirect Bilirubin 0.5 AST 21 ALT 42 Alkaline Phosphatase 73 Total Creatine Kinase 49 CK-MB (CK-2) < 1.0 Troponin I < 0.015 Total Protein 7.1 Albumin 3.6 06/24/16 10:03 WBC RBC Hgb Hct MCV MCH MCHC RDW Plt Count MPV Neut % (Auto) Lymph % (Auto) [place] % (Auto) Eos % (Auto) Baso % (Auto) Neut # (Auto) Lymph # (Auto) [place] # (Auto) Eos # (Auto) Baso # (Auto) Total Counted Immature Gran % Nucleated RBC % Immature Gran # Segmented Neutrophils Lymphocytes Monocytes Eosinophils Basophils Metamyelocytes Nucleated RBCs # Platelet Estimate Hypochromasia Microcytosis Stomatocytes Morphology Comment Sodium Potassium Chloride Carbon Dioxide Anion Gap BUN Creatinine GFR Calculation BUN/Creatinine Ratio Glucose Calculated Osmolality Calcium Magnesium Total Bilirubin Direct Bilirubin Indirect Bilirubin AST ALT Alkaline Phosphatase Total Creatine Kinase 42 CK-MB (CK-2) < 1.0 Troponin I < 0.015 Total Protein Albumin DS: Provider Date of admission: 06/23/16 11:56 Primary care physician: . No PCP Attending physician on admission: Tin Velazquez MD Consults: 06/23/16 13:38 Consult to Dietitian [CONS] Routine Reason for Dietitian: Dietary Consult 06/23/16 14:37 Consult to Pastoral Services [CONS] Routine Comment: Pastoral Screen: Request [place] Operator Visit Pastoral Screen Source of Request: Patient 06/24/16 07:11 Consult to Physician [CONS] Routine Comment: Consulting Provider: Cardiology - [facility] When should Consulting Provider be notified: Now Person Notified: [facility] Date Notified: 06/24/16 Time Notified: 07:40 Discharging clinician: PRAVIN De Guzman Expected date of discharge: 06/25/16
[2016-06-25 11:34] VITALS: BP 147/84
== END 2016-06-25 13:40 | disposition home or self-care (01) ==
LOC: EDBD → EDUNIT# → N.EDINP 09:35 → N.ED 09:35 → N.TELES 12:11
PROVIDERS: ADMIT Family Medicine; ATTEND Family Medicine